=== PATIENT | female | born 1995 | race African-American/Black ===

== ENCOUNTER 2017-12-09 02:04 | Emergency (ER) | payer OTHER ==
[2017-12-09] MEDS ORDERED: NS(*) 0.9% 1000 ML BAG 1,000 ML IV ONE (02:09)
[2017-12-09] MEDS ORDERED: ONDANSETRON 4 MG/2 ML VIAL IVP ONE ×2 (02:10→03:40)
--- NOTE | 2017-12-09 02:17 | ER Report ---
History and Physical Time Seen By MD: 02:05 Hx. of Stated Complaint: patient brought in by ems fr alcohol intoxication. (YENI KAUR MD) HPI/ROS CHIEF COMPLAINT: altered mental status HISTORY OF PRESENT ILLNESS: This is a 22 year old female. Brought to the ER by EMS. She is thought to be intoxicated. She is not verbal for us, groaning at times and moving around and combative intermittently. The report is that she was driving, boyfriend in the car, but suspect that he was driving and they changed places. Boyfriend stated that she had about 4 drinks. She is more incoherent with police and EMS and stated that she had a lot to drink. Boyfriend said that she suddenly lost consciousness. In talking to the police, there was a mention of "roofies" so unsure if there is something else present in her system. She is unable to give a history at this time. REVIEW OF SYSTEMS: unable to obtain (YENI KAUR MD) Allergies: Coded Allergies: No Known Drug Allergies (Unverified , 12/09/17) Unable To Obtain Past Medical: Unable to Obtain/Update (YENI KAUR MD) Reviewed Nurses Notes: Yes (YENI KAUR MD) Constitutional Vital Sign - Last 24 Hours 12/09/17 12/09/17 12/09/17 12/09/17 02:06 02:06 02:30 02:34 Temp 97.2 Pulse 72 ??? Resp 16 B/P (MAP) 116/70 96/51 (66) Pulse Ox 88 98 O2 Delivery Room Air O2 Flow Rate 2.0 12/09/17 12/09/17 12/09/17 12/09/17 02:49 03:00 03:04 03:30 Pulse 68 66 B/P (MAP) 100/80 (87) 127/92 (104) Pulse Ox 99 93 12/09/17 12/09/17 12/09/17 12/09/17 03:34 03:49 04:00 04:05 Pulse 74 84 78 B/P (MAP) 111/76 (88) Pulse Ox 95 94 97 12/09/17 12/09/17 12/09/17 12/09/17 04:30 04:35 05:00 05:05 Pulse 75 ??? B/P (MAP) 99/64 (76) 100/67 (78) Pulse Ox 97 97 12/09/17 12/09/17 12/09/17 12/09/17 05:20 05:30 05:35 05:40 Pulse 78 78 78 B/P (MAP) 97/71 (80) Pulse Ox 98 95 94 12/09/17 12/09/17 12/09/17 12/09/17 05:55 06:00 06:10 06:25 Pulse ??? 75 76 B/P (MAP) 113/83 (93) Pulse Ox 93 97 98 12/09/17 06:30 B/P (MAP) 99/52 (68) (RAYMOND VELÁSQUEZ MD) Physical Exam General Appearance: The patient is not alert, but does respond to push away from painful stimuli. Moves around in bed and changes position, but not seeming to be aware of surroundings. Disheveled with vomit on clothing. Appears intoxicated. Eyes: Pupils are equal, round. Reactive to light. No pallor or icterus, but does have some injection. ENT: Mucous membranes are moist. Normal oral mucosa. Normal posterior oropharynx. Neck: Supple, midline trachea. Respiratory: Breathing easily and unlabored. Lungs are clear to auscultation. There are no retractions or accessory muscle use. Cardiovascular: Regular rate and rhythm. No murmurs, gallops or rubs. Normal capillary refill. No edema. Gastrointestinal: Abdomen is soft and nondistended. Normal active bowel sounds. Genitourinary: Normal on catheterization. Neurological: Decreased mental status which appears due to intoxication, but appears able to protect her airway. Skin: Warm and dry. No rashes or injuries noted. Musculoskeletal: No deformities or injuries noted. DIFFERENTIAL DIAGNOSIS: After history and physical exam, differential diagnosis was considered for altered mental status, most likely to alcohol, but cannot rule out drugs, or possibly others like Rohypnol, Gamma Hydroxybutyrate, or Ketamine. Based on report of boyfriend, does not sound like injury. ([facility]) Medical Decision Making Data Points Result Diagram: 12/09/17 0256 12/09/17 0256 Laboratory Hematology Test 12/09/17 02:56 12/09/17 03:12 Red Blood Count 4.46 M/uL (4.17-5.56) Mean Corpuscular Volume 88.5 fL (80.0-96.0) Mean Corpuscular Hemoglobin 30.1 pg (26.0-33.0) Mean Corpuscular Hemoglobin Concent 34.0 g/dL (32.0-36.0) Red Cell Distribution Width 13.4 % (11.5-14.5) Mean Platelet Volume 8.5 fL (7.2-11.1) Neutrophils (%) (Auto) 49.4 % (39.4-72.5) Lymphocytes (%) (Auto) 38.9 % (17.6-49.6) Monocytes (%) (Auto) 8.4 % (4.1-12.4) Eosinophils (%) (Auto) 1.5 % (0.4-6.7) Basophils (%) (Auto) 1.8 % (0.3-1.4) Nucleated RBC Relative Count (auto) 0.1 /100WBC Neutrophils # (Auto) 4.9 K/uL (2.0-7.4) Lymphocytes # (Auto) 3.8 K/uL (1.3-3.6) Monocytes # (Auto) 0.8 K/uL (0.3-1.0) Eosinophils # (Auto) 0.1 K/uL (0.0-0.5) Basophils # (Auto) 0.2 K/uL (0.0-0.1) Nucleated RBC Absolute Count (auto) 0.01 K/uL Sodium Level 144 mmol/L (137-145) Potassium Level 3.0 mmol/L (3.5-5.0) Chloride Level 108 mmol/L (98-107) Carbon Dioxide Level 19 mmol/L (22-31) Blood Urea Nitrogen 11 mg/dl (7-18) Creatinine 0.70 mg/dl (0.52-1.04) Glomerular Filtration Rate Calc > 60.0 Random Glucose 94 mg/dl (75-110) Calcium Level 8.4 mg/dl (8.4-10.2) Magnesium Level 1.9 mg/dl (1.7-2.2) Total Bilirubin 0.2 mg/dl (0.2-1.3) Aspartate Amino Transf (AST/SGOT) 28 U/L (0-35) Alanine Aminotransferase (ALT/SGPT) 41 U/L (0-56) Alkaline Phosphatase 46 U/L (0-126) Total Protein 5.7 gm/dl (6.3-8.2) Albumin 3.1 g/dl (3.5-5.0) Human Chorionic Gonadotropin, Qual Negative (NEGATIVE) Salicylates Level < 10 mg/L Salicylate Last Dose Date unk Acetaminophen Level < 10 ug/ml Serum Alcohol 254 mg/dl Urine Color Yellow Urine Clarity Clear Urine pH 5.0 pH (4.8-9.5) Urine Specific [place] 1.010 Urine Protein Negative mg/dL (NEGATIVE) Urine Glucose (UA) Negative mg/dL (NEGATIVE) Urine Ketones Negative mg/dL (NEGATIVE) Urine Blood Negative (NEGATIVE) Urine Nitrite Negative (NEGATIVE) Urine Bilirubin Negative (NEGATIVE) Urine Urobilinogen Negative mg/dL (0.2-1.9) Urine Leukocyte Esterase Negative (NEGATIVE) Urine RBC None /HPF (0-2/HPF) Urine WBC <1 /HPF (0-5/HPF) Urine Squamous Epithelial Cells None /LPF (NONE-FEW) Urine Bacteria Negative /HPF (NONE-FEW) Urine Mucus None /HPF (NONE-FEW) Urine Opiates Screen Negative Urine Barbiturates Screen Negative Ur Tricyclic Antidepressants Screen Negative Urine Phencyclidine Screen Negative Urine Amphetamines Screen Negative Urine Benzodiazepines Screen Negative Urine Cocaine Screen Negative Urine Cannabinoids Screen Negative Chemistry Test 12/09/17 02:56 12/09/17 03:12 White Blood Count 9.9 k/uL (4.5-11.0) Red Blood Count 4.46 M/uL (4.17-5.56) Hemoglobin 13.4 g/dL (12.0-16.0) Hematocrit 39.5 % (34.0-47.0) Mean Corpuscular Volume 88.5 fL (80.0-96.0) Mean Corpuscular Hemoglobin 30.1 pg (26.0-33.0) Mean Corpuscular Hemoglobin Concent 34.0 g/dL (32.0-36.0) Red Cell Distribution Width 13.4 % (11.5-14.5) Platelet Count 256 K/uL (150-450) Mean Platelet Volume 8.5 fL (7.2-11.1) Neutrophils (%) (Auto) 49.4 % (39.4-72.5) Lymphocytes (%) (Auto) 38.9 % (17.6-49.6) Monocytes (%) (Auto) 8.4 % (4.1-12.4) Eosinophils (%) (Auto) 1.5 % (0.4-6.7) Basophils (%) (Auto) 1.8 % (0.3-1.4) Nucleated RBC Relative Count (auto) 0.1 /100WBC Neutrophils # (Auto) 4.9 K/uL (2.0-7.4) Lymphocytes # (Auto) 3.8 K/uL (1.3-3.6) Monocytes # (Auto) 0.8 K/uL (0.3-1.0) Eosinophils # (Auto) 0.1 K/uL (0.0-0.5) Basophils # (Auto) 0.2 K/uL (0.0-0.1) Nucleated RBC Absolute Count (auto) 0.01 K/uL Glomerular Filtration Rate Calc > 60.0 Calcium Level 8.4 mg/dl (8.4-10.2) Magnesium Level 1.9 mg/dl (1.7-2.2) Total Bilirubin 0.2 mg/dl (0.2-1.3) Aspartate Amino Transf (AST/SGOT) 28 U/L (0-35) Alanine Aminotransferase (ALT/SGPT) 41 U/L (0-56) Alkaline Phosphatase 46 U/L (0-126) Total Protein 5.7 gm/dl (6.3-8.2) Albumin 3.1 g/dl (3.5-5.0) Human Chorionic Gonadotropin, Qual Negative (NEGATIVE) Salicylates Level < 10 mg/L Salicylate Last Dose Date unk Acetaminophen Level < 10 ug/ml Serum Alcohol 254 mg/dl Urine Color Yellow Urine Clarity Clear Urine pH 5.0 pH (4.8-9.5) Urine Specific [place] 1.010 Urine Protein Negative mg/dL (NEGATIVE) Urine Glucose (UA) Negative mg/dL (NEGATIVE) Urine Ketones Negative mg/dL (NEGATIVE) Urine Blood Negative (NEGATIVE) Urine Nitrite Negative (NEGATIVE) Urine Bilirubin Negative (NEGATIVE) Urine Urobilinogen Negative mg/dL (0.2-1.9) Urine Leukocyte Esterase Negative (NEGATIVE) Urine RBC None /HPF (0-2/HPF) Urine WBC <1 /HPF (0-5/HPF) Urine Squamous Epithelial Cells None /LPF (NONE-FEW) Urine Bacteria Negative /HPF (NONE-FEW) Urine Mucus None /HPF (NONE-FEW) Urine Opiates Screen Negative Urine Barbiturates Screen Negative Ur Tricyclic Antidepressants Screen Negative Urine Phencyclidine Screen Negative Urine Amphetamines Screen Negative Urine Benzodiazepines Screen Negative Urine Cocaine Screen Negative Urine Cannabinoids Screen Negative Toxicology Test 12/09/17 02:56 12/09/17 03:12 Salicylates Level < 10 mg/L Salicylate Last Dose Date unk Acetaminophen Level < 10 ug/ml Serum Alcohol 254 mg/dl Urine Opiates Screen Negative Urine Barbiturates Screen Negative Ur Tricyclic Antidepressants Screen Negative Urine Phencyclidine Screen Negative Urine Amphetamines Screen Negative Urine Benzodiazepines Screen Negative Urine Cocaine Screen Negative Urine Cannabinoids Screen Negative Urinalysis Test 12/09/17 03:12 Urine Color Yellow Urine Clarity Clear Urine pH 5.0 pH (4.8-9.5) Urine Specific [place] 1.010 Urine Protein Negative mg/dL (NEGATIVE) Urine Glucose (UA) Negative mg/dL (NEGATIVE) Urine Ketones Negative mg/dL (NEGATIVE) Urine Blood Negative (NEGATIVE) Urine Nitrite Negative (NEGATIVE) Urine Bilirubin Negative (NEGATIVE) Urine Urobilinogen Negative mg/dL (0.2-1.9) Urine Leukocyte Esterase Negative (NEGATIVE) Urine RBC None /HPF (0-2/HPF) Urine WBC <1 /HPF (0-5/HPF) Urine Squamous Epithelial Cells None /LPF (NONE-FEW) Urine Bacteria Negative /HPF (NONE-FEW) Urine Mucus None /HPF (NONE-FEW) (RAYMOND VELÁSQUEZ MD) EKG/Imaging Imaging HEAD W/O CONTRAST HISTORY: Altered mental status. COMPARISON: None. TECHNIQUE: Axial images were obtained from the skull base to the vertex without contrast. Sagittal and coronal reformats were performed. One of the following dose optimization techniques was utilized in the performance of this exam: Automated exposure control; adjustment of the mA and/ or kV according to the patient's size; or use of an iterative reconstruction technique. Specific details can be referenced in the facility's radiology CT exam operational policy. CONTRAST: None. FINDINGS: Brain: No intracranial hemorrhage, mass or edema. Ventricles and sulci: Sulci are normal. Ventricular size and configuration is normal. Osseous structures: Intact. Paranasal sinuses and mastoids: There is mild focal mucosal thickening of the bilateral maxillary sinuses. There is slight leftward nasal septal bowing. Mastoids are clear. Orbits and soft tissues: There is mild cerumen within the external auditory canals. There is a disconjugate gaze. IMPRESSION: 1. No acute intracranial abnormality. 2. Mild maxillary sinus disease. Report Dictated By: Modesta Perez at 12/09/2017 3:37 AM CHEST SINGLE AP 12/09/2017 02:58 hours. HISTORY: Altered mental status. COMPARISON: None. TECHNIQUE: Portable AP view of the chest. FINDINGS: Patient is rotated. Tubes/lines/hardware: None. Pulmonary: Lungs are clear. There is no pneumothorax or pleural effusion. Cardiomediastinal: Cardiac and mediastinal silhouettes are within normal limits. Bones/soft tissues: No acute osseous abnormality. There is a mild leftward sweeping curvature of the thoracic spine. Lumbar spine curves to the right. The visible abdomen is normal. IMPRESSION: 1. No acute cardiopulmonary process. Report Dictated By: Modesta Perez at 12/09/2017 3:41 AM (YENI KAUR MD) ED Course/Re-evaluation Clinical Indication for ER IV: Hydration, IV Access ED Course The patient was given an initial liter of normal saline. In order to get the CT scan, chest x-ray, and urine, we did go ahead and give her a dose of ketamine which she tolerated well. She recovered from the ketamine and still was confused. Rule out sure in the ER through the night to keep her safe. Gave a second liter of normal saline. Intermittent re-evaluations revealed continued confusion. CT scan of the chest x-ray and labs are negative other than the elevated alcohol level, and a slight decrease in her potassium at 3.0. (YENI KAUR MD) ED Course 12/09/2017 8:52:44 am I took this patient is a turnover from Dr. Ruiz pending sobriety. She is now awake and alert. She and I talked for over an hour about what happened last night, and how she should not be associating herself with people who use heroin and other illicit drugs. She is tearful at times throughout the discussion. She does not remember the events of last night. He denies SI or HI. There is no evidence of psychosis or sujit. She is very remorseful about the turn of events last night. I am going to give her resources for outpatient counseling. We also discussed finding a peer or group in [place] and support her life values better than the current group she was trying to help last night. She voices understanding and is grateful for the care she received in the emergency department. She feels safe to go home with her roommates. Decision to Disposition Date: Dec 09, 2017 Decision to Disposition Time: 08:56 (RAYMOND VELÁSQUEZ MD) Depart Departure Latest Vital Signs Vital Signs Date Time Temp Pulse Resp B/P (MAP) Pulse Ox O2 Delivery O2 Flow Rate FiO2 12/09/17 06:30 99/52 (68) 12/09/17 06:25 76 98 12/09/17 02:06 97.2 16 Room Air 12/09/17 02:06 2.0 (RAYMOND VELÁSQUEZ MD) Impression: Primary Impression: Alcohol intoxication Condition: Improved Disposition: HOME OR SELF-CARE Patient Instructions: Abuse of Alcohol (ED) Problem Qualifiers Primary Impression: Alcohol intoxication Complication of substance-induced condition: with unspecified complication Qualified Codes: F10.929 - Alcohol use, unspecified with intoxication, unspecified YENI KAUR MD Dec 09, 2017 02:17 RAYMOND VELÁSQUEZ MD Dec 09, 2017 08:58
[2017-12-09] MEDS ORDERED: KETAMINE HCL 500 MG/5 ML VIAL IVP ONE (03:00)
[2017-12-09 03:03] LABS: PLATELET COUNT, AUTOMATED 256 K/uL (150-450)
[2017-12-09] MEDS ORDERED: EMS NS 0.9%(*) 1000 ML BAG 1,000 ML IV ONE (03:20)
--- NOTE | 2017-12-09 03:44 | RADIOLOGY IMAGING REPORT ---
[place] [facility] [place] Marietta Kruger : 1995 MR: [id number] V: [id number] EXAM DATE: ORDERING PHYSICIAN: YENI KAUR TECHNOLOGIST: Location: [facility] - [place] Patient: Marietta Kruger : 1995 Visit/Account:[id number] Date of Sevice: 12/09/2017 HEAD W/O CONTRAST HISTORY: Altered mental status. COMPARISON: None. TECHNIQUE: Axial images were obtained from the skull base to the vertex without contrast. Sagittal an d coronal reformats were performed. One of the following dose optimization techniques was utilized in the performance of this exam: Autom ated exposure control; adjustment of the mA and/or kV according to the patient's size; or use of an i terative reconstruction technique. Specific details can be referenced in the facility's radiology CT exam operational policy. CONTRAST: None. FINDINGS: Brain: No intracranial hemorrhage, mass or edema. Ventricles and sulci: Sulci are normal. Ventricular size and configuration is normal. Osseous structures: Intact. Paranasal sinuses and mastoids: There is mild focal mucosal thickening of the bilateral maxillary sin uses. There is slight leftward nasal septal bowing. Mastoids are clear. Orbits and soft tissues: There is mild cerumen within the external auditory canals. There is a discon jugate gaze. IMPRESSION: 1. No acute intracranial abnormality. 2. Mild maxillary sinus disease. Report Dictated By: Modesta Perez at 12/09/2017 3:37 AM Report E-Signed By: Modesta Perez at 12/09/2017 3:40 AM WSN:[id number]
--- NOTE | 2017-12-09 03:45 | RADIOLOGY IMAGING REPORT ---
FACILITY: [facility] - [place] PATIENT NAME: Marietta Kruger : 1995 MR: [id number] V: [id number] EXAM DATE: ORDERING PHYSICIAN: YENI KAUR TECHNOLOGIST: Location: Patient: Marietta Kruger : 1995 Visit/Account:[id number] Date of Sevice: 12/09/2017 CHEST SINGLE AP 12/09/2017 02:58 hours. HISTORY: Altered mental status. COMPARISON: None. TECHNIQUE: Portable AP view of the chest. FINDINGS: Patient is rotated. Tubes/lines/hardware: None. Pulmonary: Lungs are clear. There is no pneumothorax or pleural effusion. Cardiomediastinal: Cardiac and mediastinal silhouettes are within normal limits. Bones/soft tissues: No acute osseous abnormality. There is a mild leftward sweeping curvature of the thoracic spine. Lumbar spine curves to the right. The visible abdomen is normal. IMPRESSION: 1. No acute cardiopulmonary process. Report Dictated By: Modesta Perez at 12/09/2017 3:41 AM Report E-Signed By: Modesta Perez at 12/09/2017 3:42 AM WSN:[id number]
[2017-12-09 07:00] VITALS: BP 93/58
== END 2017-12-09 09:10 | disposition home or self-care (01) ==
LOC: ER 02:07
DX: F10.920 Alcohol use, unspecified with intoxication, uncomplicated (principal)
CPT/HCPCS: 70450; 71045; 80305; 80320; 80329; 80357; 81001; 83735; 84443; 84703; 85025; 96361; 96374; 96375; 96376; 99284; A4353; J2405; J7030; 82040; 82247; 82310; 82374; 82435; 82565; 82947; 84075; 84132; 84155; 84295; 84450; 84460; 84520

== ENCOUNTER → 2017-12-09 | Outpatient (CLI) | payer OTHER | LOC: AMB 01:38 | PROVIDERS: ATTEND Nurse Practitioner | DX: F10.120 Alcohol abuse with intoxication, uncomplicated (principal); R11.10 Vomiting, unspecified | CPT/HCPCS: A0425; A0427 ==

== ENCOUNTER 2018-07-17 20:20 | Emergency (ER) | payer OTHER ==
--- NOTE | 2018-07-17 20:27 | ER Report ---
History and Physical Time Seen By MD: 20:27 HPI/ROS CHIEF COMPLAINT: suicidal ideation HISTORY OF PRESENT ILLNESS: This is a 23 year old female. Here because of worsening depression with suicidal ideation. She is having a reaction with some difficulty breathing and talking because of some rhythmic contractions of her diaphragm, almost like frequent hiccups. Has had symptoms of upper respiratory infection recently as well. under alot of stress. Prior substance abuse, alcohol abuse, and trying not to relapse. Had thoughts of taking a bunch of medicines. Currently on Lamictal and Quetiapine, started last Sunday, for her Bipolar disorder. Allergies: Coded Allergies: No Known Drug Allergies (Unverified , 07/17/18) Home Meds Reported Medications Lamotrigine (LAMOTRIGINE) 25 Mg Tablet, 25 MG PO QAM for 14 Days 07/17/18 Quetiapine Fumarate (QUETIAPINE FUMARATE) 25 Mg Tablet, 0.5-2 TAB PO HS 07/17/18 Reviewed Nurses Notes: Yes Constitutional Vital Sign - Last 24 Hours 07/17/18 07/17/18 07/17/18 07/17/18 20:24 20:24 20:30 20:35 Temp 99.0 Pulse 120 124 Resp 22 B/P (MAP) 151/118 151/118 (129) 143/112 (122) Pulse Ox 90 96 O2 Delivery Room Air 07/17/18 07/17/18 07/17/18 07/17/18 21:08 21:13 21:28 21:30 Pulse 122 108 B/P (MAP) 169/124 (139) 148/99 (115) Pulse Ox 96 97 07/17/18 07/17/18 07/17/18 21:43 21:58 22:00 Pulse 103 94 B/P (MAP) 104/80 (88) Pulse Ox 95 94 Physical Exam General Appearance: Alert, Anxious and tearful. Difficulty talking with continued contractions of diaphragm and belly. Eyes: Pupils equal and round, has some injection. ENT: Normal oral mucosa. Moist mucous membranes. Neck: Neck is supple and non tender. Respiratory: Chest is non tender, lungs are clear to auscultation. Cardiac: regular rate and rhythm Gastrointestinal: Abdomen is soft and non tender, bowel sounds normal. Musculoskeletal: Extremities have full range of motion. Skin: No rashes or lesions. DIFFERENTIAL DIAGNOSIS: After history and physical exam differential diagnosis was considered for suicidal ideation, depression and increased anxiety. Medical Decision Making Data Points Result Diagram: 07/17/18203107/17/182031 Laboratory Hematology Test 07/17/18 00:00 07/17/18 20:32 07/17/18 20:39 Human Chorionic Gonadotropin, Qual Negative (NEGATIVE) Red Blood Count 5.37 M/uL (4.17-5.56) Mean Corpuscular Volume 87.6 fL (80.0-96.0) Mean Corpuscular Hemoglobin 30.1 pg (26.0-33.0) Mean Corpuscular Hemoglobin Concent 34.3 g/dL (32.0-36.0) Red Cell Distribution Width 13.5 % (11.5-14.5) Mean Platelet Volume 8.5 fL (7.2-11.1) Neutrophils (%) (Auto) 54.8 % (39.4-72.5) Lymphocytes (%) (Auto) 37.9 % (17.6-49.6) Monocytes (%) (Auto) 6.6 % (4.1-12.4) Eosinophils (%) (Auto) 0.6 % (0.4-6.7) Basophils (%) (Auto) 0.1 % (0.3-1.4) Nucleated RBC Relative Count (auto) 0.0 /100WBC Neutrophils # (Auto) 4.7 K/uL (2.0-7.4) Lymphocytes # (Auto) 3.3 K/uL (1.3-3.6) Monocytes # (Auto) 0.6 K/uL (0.3-1.0) Eosinophils # (Auto) 0.1 K/uL (0.0-0.5) Basophils # (Auto) 0.0 K/uL (0.0-0.1) Nucleated RBC Absolute Count (auto) 0.00 K/uL Sodium Level 141 mmol/L (137-145) Potassium Level 3.7 mmol/L (3.5-5.0) Chloride Level 108 mmol/L (98-107) Carbon Dioxide Level 19 mmol/L (22-31) Blood Urea Nitrogen 10 mg/dl (7-18) Creatinine 0.90 mg/dl (0.52-1.04) Glomerular Filtration Rate Calc > 60.0 Random Glucose 136 mg/dl (75-110) Calcium Level 9.9 mg/dl (8.4-10.2) Magnesium Level 2.0 mg/dl (1.7-2.2) Total Bilirubin 0.2 mg/dl (0.2-1.3) Aspartate Amino Transf (AST/SGOT) 35 U/L (0-35) Alanine Aminotransferase (ALT/SGPT) 32 U/L (0-56) Alkaline Phosphatase 51 U/L (0-126) Total Protein 7.7 g/dl (6.3-8.2) Albumin 4.5 g/dl (3.5-5.0) Salicylates Level < 10 mg/L Salicylate Last Dose Date unk Acetaminophen Level < 10 ug/ml Serum Alcohol < 10 mg/dl Urine Color Ute Urine Clarity Cloudy Urine pH 6.0 pH (4.8-9.5) Urine Specific [place] 1.028 Urine Protein 30 mg/dL (NEGATIVE) Urine Glucose (UA) Negative mg/dL (NEGATIVE) Urine Ketones 20 mg/dL (NEGATIVE) Urine Blood Negative (NEGATIVE) Urine Nitrite Negative (NEGATIVE) Urine Bilirubin Negative (NEGATIVE) Urine Urobilinogen 2.0 mg/dL (0.2-1.9) Urine Leukocyte Esterase Negative (NEGATIVE) Urine RBC 2 /HPF (0-2/HPF) Urine WBC 2 /HPF (0-5/HPF) Urine Squamous Epithelial Cells Many /LPF (</=FEW) Urine Bacteria Negative /HPF (NONE-FEW) Urine Mucus Few /HPF (NONE-FEW) Urine Opiates Screen Negative Urine Barbiturates Screen Negative Ur Tricyclic Antidepressants Screen Negative Urine Phencyclidine Screen Negative Urine Amphetamines Screen Negative Urine Benzodiazepines Screen Negative Urine Cocaine Screen Negative Urine Cannabinoids Screen Negative Chemistry Test 07/17/18 00:00 07/17/18 20:32 07/17/18 20:39 Human Chorionic Gonadotropin, Qual Negative (NEGATIVE) White Blood Count 8.6 k/uL (4.5-11.0) Red Blood Count 5.37 M/uL (4.17-5.56) Hemoglobin 16.1 g/dL (12.0-16.0) Hematocrit 47.1 % (34.0-47.0) Mean Corpuscular Volume 87.6 fL (80.0-96.0) Mean Corpuscular Hemoglobin 30.1 pg (26.0-33.0) Mean Corpuscular Hemoglobin Concent 34.3 g/dL (32.0-36.0) Red Cell Distribution Width 13.5 % (11.5-14.5) Platelet Count 391 K/uL (150-450) Mean Platelet Volume 8.5 fL (7.2-11.1) Neutrophils (%) (Auto) 54.8 % (39.4-72.5) Lymphocytes (%) (Auto) 37.9 % (17.6-49.6) Monocytes (%) (Auto) 6.6 % (4.1-12.4) Eosinophils (%) (Auto) 0.6 % (0.4-6.7) Basophils (%) (Auto) 0.1 % (0.3-1.4) Nucleated RBC Relative Count (auto) 0.0 /100WBC Neutrophils # (Auto) 4.7 K/uL (2.0-7.4) Lymphocytes # (Auto) 3.3 K/uL (1.3-3.6) Monocytes # (Auto) 0.6 K/uL (0.3-1.0) Eosinophils # (Auto) 0.1 K/uL (0.0-0.5) Basophils # (Auto) 0.0 K/uL (0.0-0.1) Nucleated RBC Absolute Count (auto) 0.00 K/uL Glomerular Filtration Rate Calc > 60.0 Calcium Level 9.9 mg/dl (8.4-10.2) Magnesium Level 2.0 mg/dl (1.7-2.2) Total Bilirubin 0.2 mg/dl (0.2-1.3) Aspartate Amino Transf (AST/SGOT) 35 U/L (0-35) Alanine Aminotransferase (ALT/SGPT) 32 U/L (0-56) Alkaline Phosphatase 51 U/L (0-126) Total Protein 7.7 g/dl (6.3-8.2) Albumin 4.5 g/dl (3.5-5.0) Salicylates Level < 10 mg/L Salicylate Last Dose Date unk Acetaminophen Level < 10 ug/ml Serum Alcohol < 10 mg/dl Urine Color Ute Urine Clarity Cloudy Urine pH 6.0 pH (4.8-9.5) Urine Specific [place] 1.028 Urine Protein 30 mg/dL (NEGATIVE) Urine Glucose (UA) Negative mg/dL (NEGATIVE) Urine Ketones 20 mg/dL (NEGATIVE) Urine Blood Negative (NEGATIVE) Urine Nitrite Negative (NEGATIVE) Urine Bilirubin Negative (NEGATIVE) Urine Urobilinogen 2.0 mg/dL (0.2-1.9) Urine Leukocyte Esterase Negative (NEGATIVE) Urine RBC 2 /HPF (0-2/HPF) Urine WBC 2 /HPF (0-5/HPF) Urine Squamous Epithelial Cells Many /LPF (</=FEW) Urine Bacteria Negative /HPF (NONE-FEW) Urine Mucus Few /HPF (NONE-FEW) Urine Opiates Screen Negative Urine Barbiturates Screen Negative Ur Tricyclic Antidepressants Screen Negative Urine Phencyclidine Screen Negative Urine Amphetamines Screen Negative Urine Benzodiazepines Screen Negative Urine Cocaine Screen Negative Urine Cannabinoids Screen Negative Toxicology Test 07/17/18 20:32 07/17/18 20:39 Salicylates Level < 10 mg/L Salicylate Last Dose Date unk Acetaminophen Level < 10 ug/ml Serum Alcohol < 10 mg/dl Urine Opiates Screen Negative Urine Barbiturates Screen Negative Ur Tricyclic Antidepressants Screen Negative Urine Phencyclidine Screen Negative Urine Amphetamines Screen Negative Urine Benzodiazepines Screen Negative Urine Cocaine Screen Negative Urine Cannabinoids Screen Negative Urinalysis Test 07/17/18 20:39 Urine Color Ute Urine Clarity Cloudy Urine pH 6.0 pH (4.8-9.5) Urine Specific [place] 1.028 Urine Protein 30 mg/dL (NEGATIVE) Urine Glucose (UA) Negative mg/dL (NEGATIVE) Urine Ketones 20 mg/dL (NEGATIVE) Urine Blood Negative (NEGATIVE) Urine Nitrite Negative (NEGATIVE) Urine Bilirubin Negative (NEGATIVE) Urine Urobilinogen 2.0 mg/dL (0.2-1.9) Urine Leukocyte Esterase Negative (NEGATIVE) Urine RBC 2 /HPF (0-2/HPF) Urine WBC 2 /HPF (0-5/HPF) Urine Squamous Epithelial Cells Many /LPF (</=FEW) Urine Bacteria Negative /HPF (NONE-FEW) Urine Mucus Few /HPF (NONE-FEW) ED Course/Re-evaluation Clinical Indication for ER IV: IV Access ED Course Labs unremarkable. Gave Phenergan and Ativan IV to help with the diaphragmatic contractions. Helped a little. Gave another dose of Ativan with improvement. Discussed with Dr. Perez who accepted the patient to [facility] for voluntary admission. Decision to Disposition Date: Jul 17, 2018 Decision to Disposition Time: 21:10 Depart Departure Latest Vital Signs Vital Signs Date Time Temp Pulse Resp B/P (MAP) Pulse Ox O2 Delivery O2 Flow Rate FiO2 07/17/18 22:00 104/80 (88) 07/17/18 21:58 94 94 07/17/18 20:24 99.0 22 Room Air Impression: Primary Impression: Suicidal ideation Condition: Condition Unchanged Disposition: XFER TO [facility] YENI KAUR MD Jul 17, 2018 20:27
[2018-07-17] MEDS ORDERED: LAMO25TA60 PO (20:38)
[2018-07-17] MEDS ORDERED: QUET25TA PO (20:38)
[2018-07-17 20:39] LABS: PLATELET COUNT, AUTOMATED 391 K/uL (150-450)
[2018-07-17] MEDS ORDERED: LORazepam 2 MG/ML VIAL IVP ONE ×2 (20:40→21:30)
[2018-07-17] MEDS ORDERED: NS(*) 0.9% 1000 ML BAG 1,000 ML IV ONE (20:40)
[2018-07-17] MEDS ORDERED: PROMETHAZINE 25 MG/ML 1 ML AMP IVP ONE (20:40)
[2018-07-17 22:00] VITALS: BP 104/80
[2018-07-18] MEDS ORDERED: CHOL10005 PO (13:38)
[2018-07-18] MEDS ORDERED: OMEG-23 PO (13:38)
[2018-07-18] MEDS ORDERED: BIOT1CAP (13:38)
[2018-07-18] MEDS ORDERED: VITA-131 PO (13:38)
[2018-07-18] MEDS ORDERED: LEVO1TAB9 PO (13:38)
[2018-07-18] MEDS ORDERED: ALBU8.5H IH (13:38)
[2018-07-18] MEDS ORDERED: LACT1CAP6 PO (13:38)
[2018-07-18] MEDS ORDERED: BIOT10005 PO (13:38)
== END 2018-07-17 22:23 ==
LOC: ER 20:28
DX: R45.851 Suicidal ideations (principal)
CPT/HCPCS: 36415; 80305; 80320; 80329; 81001; 83735; 84443; 84703; 85025; 96374; 96375; 96376; 99284; J2060; J2550; J7030; 82040; 82247; 82310; 82374; 82435; 82565; 82947; 84075; 84132; 84155; 84295; 84450; 84460; 84520; 96361

== ENCOUNTER 2018-07-17 22:15 | Inpatient (IN) | payer OTHER ==
[~2018-07-17] VITALS: Ht 177.8 cm; Wt 78.0 kg
[~2018-07-17 22:15] MED LIST: LAMO25TA60 PO; QUET25TA PO
[2018-07-17] MEDS ORDERED: LORazepam 1 MG TAB PO ONE (22:50)
[2018-07-17 23:13] VITALS: BP 126/95
[2018-07-18] MEDS: lamoTRIgine 25 MG TAB PO SCH (13:01)
[2018-07-18] MEDS: buPROPion SR 150 MG TABCR PO SCH (13:01)
[2018-07-18] MEDS ORDERED: OMEG-23 PO (13:38)
[2018-07-18] MEDS ORDERED: BIOT1CAP (13:38)
[2018-07-18] MEDS ORDERED: BIOT10005 PO (13:38)
[2018-07-18] MEDS ORDERED: ALBU8.5H IH (13:38)
[2018-07-18] MEDS ORDERED: CHOL10005 PO (13:38)
[2018-07-18] MEDS ORDERED: VITA-131 PO (13:38)
[2018-07-18] MEDS ORDERED: LACT1CAP6 PO (13:38)
[2018-07-18] MEDS ORDERED: LEVO1TAB9 PO (13:38)
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
[2018-07-18] MEDS: QUEtiapine FUM 25 MG TAB PO SCH (20:39)
[2018-07-19 06:50] VITALS: BP 118/81
[2018-07-19] MEDS: lamoTRIgine 25 MG TAB PO SCH (08:41)
[2018-07-19] MEDS: buPROPion SR 150 MG TABCR PO SCH (08:41)
[2018-07-19] MEDS ORDERED: buPROPion SR 150 MG TABCR PO SCH (12:00)
--- NOTE | 2018-07-19 13:35 | BHS Progress Note ---
[facility] - Subjective Progress Notes Subjective Patient polite and cooperative today, psychomotor retardation ongoing. Patient reports improvement in mood, and sleep, appetite good, will increase Wellbutrin today. Continue treatment. Suicidal Ideation: Resolving Homicidal Ideation: None [facility] - Objective Physical Exam Vital Signs Vital Signs Date Time Temp Pulse Resp B/P (MAP) Pulse Ox O2 Delivery O2 Flow Rate FiO2 07/19/18 06:50 98.3 95 14 118/81 (93) 96 Room Air Muscle Strength and Tone: WNL Gait and Station: Steady [facility] Medications Reviewed: Side Effects, Benefits of Medication, Risks Allergies Reviewed: Yes Mental Status Exam General Appearance: Casual, Well Groomed; No Good Eye Contact; Cooperative, Polite, Good Interaction, Psychomotor Retardation; No Bizarre Mannerisms, No Tics Speech: Clear, Spontaneous, Normal Rate, Normal Rhythm; No Normal Volume (quiet at times), No Normal Tone Mood: Dysthmic/Depressed Affect: Sad, Flat, Withdrawn Thought Process: Organized, Logical, Goal Directed; No Loose Associations, No Flight of Ideas Thought Content: Suicidal Ideation (resolving); No Homicidal Ideation, No Delusions, No Auditory Halllucinations, No Visual Hallucinations, No Thought Broadcasting, No Ideas of Reference, No Obsessions, No Compulsions Sensorium: Clear Cognition: Alert & Oriented-Person, Alert & Oriented-Place, Alert & Oriented- Time, [id number]-[id number] Memory: Immediate, Recent, Remote Intelligence: Average Insight Judgment: Fair (remains depressed but seeking care voluntarily ) [facility] Assessment and Plan Agjb-le-Ahya Encounter Date: Jul 19, 2018 [id number]-[id number] Encounter Time: 10:00 [facility] Plan: Necessary Precautions, Individual/Group Therapy, Admin/Titrate Meds, Educate Patient Tobacco Medications: Not Appropriate Condition Multpiple Antipsychotics Used: No Problems: (1) Major depression, recurrent Optional Permanent Comment: bipolar II disorder a strong possibility Last Edited By: Jesus Wilson on Jul 19, 2018 13:32 Status: Chronic Condition 1. continue treatment. 2. increase wellbutrin. Problem Qualifiers (1) Major depression, recurrent: Active/Remission status: currently active Major depression episode severity: moderate Qualified Codes: F33.1 - Major depressive disorder, recurrent, moderate JESUS WILSON MD Jul 19, 2018 13:35
[2018-07-19] MEDS: QUEtiapine FUM 25 MG TAB PO SCH (21:00)
[2018-07-20 06:17] VITALS: BP 116/60
[2018-07-20] MEDS: lamoTRIgine 25 MG TAB PO SCH (08:10)
[2018-07-20] MEDS: buPROPion SR 150 MG TABCR PO SCH (08:10)
--- NOTE | 2018-07-20 10:03 | BHS Progress Note ---
[facility] - Subjective Progress Notes Subjective "I think I just blew a fuse on Sunday. I just let a lot get to me but I usually don't trip over things like my car. I tried everything I usually do when I have anxiety but I continued to escalate." Denies depression, anxiety or anger Denies mood swings, AVH Denies thoughts of harming self Suicidal Ideation: None Homicidal Ideation: None S - Objective Physical Exam Vital Signs Allergies Coded Allergies No Known Drug Allergies (Unverified07/17/18) Deferred Laboratory Tests 07/18/18 00:00: Free Thyroxine 1.12, Free Triiodothyronine 3.6 Medications (Trade) Dose Ordered Sig/Danielle Route PRN Reason Start Time Stop Time Status Last Admin Dose Admin Bupropion HCl (Wellbutrin Sr 150 Mg Tabcr (Or Equiv)) 150 mg NOON PO 07/19/18 12:00 08/18/18 11:59 07/19/18 12:15 Lamotrigine (LaMICtal 25 MG TAB (OR EQUIV)) 25 mg QAM PO 07/18/18 12:30 08/17/18 12:29 07/20/18 08:10 Lorazepam (Ativan(*) 1 Mg Tab (Or Equiv)) 1 mg ONCE ONCE PO 07/17/18 22:50 07/17/18 23:43 DC 07/17/18 22:50 Quetiapine Fumarate (SEROquel 25 MG TAB (OR EQUIV)) 50 mg QHS PO 07/18/18 21:00 08/17/18 20:59 07/19/18 21:00 Muscle Strength and Tone: WNL Gait and Station: Steady [facility] Medications Reviewed: Side Effects, Benefits of Medication, Risks Allergies Reviewed: Yes Mental Status Exam General Appearance: Casual, Well Groomed; No Good Eye Contact; Cooperative, Polite, Good Interaction, Psychomotor Retardation; No Bizarre Mannerisms, No Tics Speech: Clear, Spontaneous, Normal Rate, Normal Rhythm; No Normal Volume (quiet at times), No Normal Tone Mood: No Dysthmic/Depressed; Euthymic Affect: No Sad; Flat; No Withdrawn Thought Process: Organized, Logical, Goal Directed; No Loose Associations, No Flight of Ideas Thought Content: Suicidal Ideation (resolving); No Homicidal Ideation, No Delusions, No Auditory Halllucinations, No Visual Hallucinations, No Thought Broadcasting, No Ideas of Reference, No Obsessions, No Compulsions Sensorium: Clear Cognition: Alert & Oriented-Person, Alert & Oriented-Place, Alert & Oriented- Time, Wscfd-Agczyeeu-Kfshdzhom Memory: Immediate, Recent, Remote Intelligence: Average Insight Judgment: Fair (remains depressed but seeking care voluntarily ) [facility] Assessment and Plan Miet-la-Qoyw Encounter Date: Jul 20, 2018 Zlxc-hl-Lyga Encounter Time: 09:59 [facility] Plan: Necessary Precautions, Individual/Group Therapy, Admin/Titrate Meds, Educate Patient Tobacco Medications: Not Appropriate Condition Multpiple Antipsychotics Used: No Problems: (1) Major depression, recurrent Optional Permanent Comment: bipolar II disorder a strong possibility Last Edited By: Cristhian Perez on Jul 19, 2018 13:32 Status: Chronic Condition Continue current medications, discharge to home Criris line # provided, encourage use for worsening s/s Return to emergency room for SI/HI Problem Qualifiers (1) Major depression, recurrent: Active/Remission status: currently active Major depression episode severity: moderate Qualified Codes: F33.1 - Major depressive disorder, recurrent, moderate YURIY ADAMS NP Jul 20, 2018 10:03
[2018-07-20] MEDS ORDERED: QUET25TA30 PO ×2 (10:21→10:22)
[2018-07-20] MEDS ORDERED: BUPR-126 PO (10:23)
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
== END 2018-07-20 10:55 | disposition home or self-care (01) | DRG 885 ==
LOC: BHS 22:15
PROVIDERS: ADMIT Psychiatry & Neurology Psychiatry; ATTEND Psychiatry & Neurology Psychiatry
DX: F33.2 Major depressive disorder, recurrent severe without psychotic features (principal); R45.851 Suicidal ideations; Z62.810 Personal history of physical and sexual abuse in childhood; Z59.8 Other problems related to housing and economic circumstances; Z56.0 Unemployment, unspecified; Z81.1 Family history of alcohol abuse and dependence; Z81.3 Family history of other psychoactive substance abuse and dependence; Z91.5 Personal history of self-harm
CPT/HCPCS: 84439; 84481